=== PATIENT | male | born 1980 | race Caucasian/White ===

== ENCOUNTER 2016-09-28 20:40 | Emergency (ER) | payer OTHER ==
--- NOTE | 2016-09-28 22:03 | ED ORDER SUMMARY ---
..... Patient: RODY RENEE V OrderSheet [facility] VisitID: [id number] [address] [place] [address] 36y, M Registration Date/Time: 09/28/2016 ORDER SHEET Weight: 116.1 kg Allergies: No Known Drug Allergy GENERAL ORDERS: Shoulder 2V or more Left Urgent (21:06 09/28/2016 HBondina A.R.N.P.) (Ack 21:07 AMcQuoid ER Tech1) (21:20 MCabell) MEDICATION ORDERS: IV FLUIDS: ORDER SHEET NOTES: [Electronically signed by Jose Elias Swanson R.N. (22:10 09/28/2016)] [Electronically signed by Erica GoodenR.N.PJeronimo (13:31 09/29/2016)] [Electronically locked/signed by Jose Elias Swanson R.N. (22:10 09/28/2016)]
--- NOTE | 2016-09-28 22:03 | ED ORDER SUMMARY ---
..... Patient: RODY RENEE V OrderSheet [facility] VisitID: [id number] [address] [place] [address] 36y, M Registration Date/Time: 09/28/2016 ORDER SHEET Weight: 116.1 kg Allergies: No Known Drug Allergy GENERAL ORDERS: Shoulder 2V or more Left Urgent (21:06 09/28/2016 HBondina A.R.N.P.) (Ack 21:07 AMcQuoid ER Tech1) (21:20 MCabell) MEDICATION ORDERS: IV FLUIDS: ORDER SHEET NOTES: [Electronically signed by Jose Elias Swanson R.N. (22:10 09/28/2016)] [Electronically signed by Erica GoodenR.N.PJeronimo (13:31 09/29/2016)] [Electronically locked/signed by Jose Elias Swanson R.N. (22:10 09/28/2016)]
--- NOTE | 2016-09-28 22:03 | ED NURSING NOTES ---
Clinical Report - Nurses [facility] [address] [place] [address] 09/28/2016 20:44 [id number] TRI[facility] Triage time 20:48. Acuity: LEVEL 4. Chief Complaint: INJURY TO LEFT SHOULDER. --20:56 Jose Elias Swanson R.N. 20:48 09/28/16. BP: 111/61. HR: 83. RR: 18. O2 saturation: 100%. Temp: 98.1 F. Pain level now 12/02. --20:56 Jose Elias Swanson R.N. Weight: 116.1 kg. Height/Length: 76 inches. BMI: 31.2. --20:55 Jose Elias Swanson R.N. Medications PriLOSEC Oral. --20:54 Jose Elias Swanson R.N. Medication/allergy information source: the patient. --20:56 Jose Elias Swanson R.N. Allergies No Known Drug Allergy. --20:54 Jose Elias Swanson R.N. History Arrived by private vehicle. Historian: patient. Unaccompanied. Primary physician (Dr. Tyrel Almaguer [facility]). This occurred (1 week ago). Mechanism of injury: fell while walking and landed on a wood surface. ( Pt fell on a wooden deck about a week ago. Pt is having pain in the left shoulder. Limited rom due to pain. Pt is having some numbness and tingling in the 3rd and 4th finger.). He has had weakness and numbness. ( Pt has some weakness in the left hand when gripping.). PAST MEDICAL HX: Tetanus status: up-to-date. Immunizations: up-to-date. SOCIAL HX: Current every day heavy tobacco smoker (cigarette)- less than 1 pack per day. No alcohol use or drug use. --20:56 Jose Elias Swanson R.N. PROBLEMS: Knee Injury. Knee Joint Instability. Colon CA vrs Crohns. Headache. Paresthesia. Bronchitis. Myofascial Strain. Muscle Strain, Upper Extremity. Laceration. Hepatitis. Gastroesophageal Reflux. Tetanus Status. Atypical Chest Pain. Chest Pain of GI Origin. GI Disease. Immunizations. Hiatal Hernia. Gastroesophageal Reflux Disease. --20:55 Jose Elias Swanson R.N. Interventions ID band on patient. To waiting room. --20:56 Jose Elias Swanson R.N. PHYSICAL ASSESSMENT GENERAL / NEURO / PSYCH: Oriented X 4. Alert. Appears in no acute distress. EXTREMITIES: Limited ROM present in the left shoulder. Capillary refill is less than 2 seconds in the extremities. Extremity pulses are within normal limits. Neuro-vascular status intact to the extremity. Left shoulder: tenderness. Limited ROM due to pain and weakness (diminished abduction, adduction, flexion, extension and external and internal rotation). SKIN: Skin intact. Skin is warm and dry. --20:57 Jose Elias Swanson R.N. NURSING PROGRESS NOTES Reassurance given. Two patient identifiers checked. Call light placed in reach. Side rails up x 1. Bed placed in lowest position. Brakes of bed on. --20:57 Jose Elias Swanson R.N. DISPOSITION / DISCHARGE Departure time: 22:09. Condition at departure: unchanged. ( Pt is still having pain and limited rom in the left shoulder). No learning barriers present. Discharge instructions provided and reviewed with the patient. Reviewed medication(s) side effects, precautions, dosing and course information. Prescription(s) given to the patient. Activity restrictions (minimal use of injured extremity and rest) reviewed. Patient verbalized understanding. Written instructions provided in Slovenian. The patient was discharged by the nurse practitioner. He was discharged home and unaccompanied at time of discharge. He left the Emergency Department ambulatory and via private vehicle. Patient driving. --22:10 Jose Elias Swanson R.N. 22:08 09/28/16. BP: 118/55. HR: 75. RR: 16. O2 saturation: 100%. Pain level now 11/02. --22:10 Jose Elias Swanson R.N. Locked/Released at 09/28/2016 22:10 by Jose Elias Swanson R.N.
--- NOTE | 2016-09-28 22:03 | ED NURSING NOTES ---
Clinical Report - Nurses [facility] [address] [place] [address] 09/28/2016 20:44 [id number] TRI[facility] Triage time 20:48. Acuity: LEVEL 4. Chief Complaint: INJURY TO LEFT SHOULDER. --20:56 Jose Elias Swanson R.N. 20:48 09/28/16. BP: 111/61. HR: 83. RR: 18. O2 saturation: 100%. Temp: 98.1 F. Pain level now 12/02. --20:56 Jose Elias Swanson R.N. Weight: 116.1 kg. Height/Length: 76 inches. BMI: 31.2. --20:55 Jose Elias Swanson R.N. Medications PriLOSEC Oral. --20:54 Jose Elias Swanson R.N. Medication/allergy information source: the patient. --20:56 Jose Elias Swanson R.N. Allergies No Known Drug Allergy. --20:54 Jose Elias Swanson R.N. History Arrived by private vehicle. Historian: patient. Unaccompanied. Primary physician (Dr. Tyrel Almaguer [facility]). This occurred (1 week ago). Mechanism of injury: fell while walking and landed on a wood surface. ( Pt fell on a wooden deck about a week ago. Pt is having pain in the left shoulder. Limited rom due to pain. Pt is having some numbness and tingling in the 3rd and 4th finger.). He has had weakness and numbness. ( Pt has some weakness in the left hand when gripping.). PAST MEDICAL HX: Tetanus status: up-to-date. Immunizations: up-to-date. SOCIAL HX: Current every day heavy tobacco smoker (cigarette)- less than 1 pack per day. No alcohol use or drug use. --20:56 Jose Elias Swanson R.N. PROBLEMS: Knee Injury. Knee Joint Instability. Colon CA vrs Crohns. Headache. Paresthesia. Bronchitis. Myofascial Strain. Muscle Strain, Upper Extremity. Laceration. Hepatitis. Gastroesophageal Reflux. Tetanus Status. Atypical Chest Pain. Chest Pain of GI Origin. GI Disease. Immunizations. Hiatal Hernia. Gastroesophageal Reflux Disease. --20:55 Jose Elias Swanson R.N. Interventions ID band on patient. To waiting room. --20:56 Jose Elias Swanson R.N. PHYSICAL ASSESSMENT GENERAL / NEURO / PSYCH: Oriented X 4. Alert. Appears in no acute distress. EXTREMITIES: Limited ROM present in the left shoulder. Capillary refill is less than 2 seconds in the extremities. Extremity pulses are within normal limits. Neuro-vascular status intact to the extremity. Left shoulder: tenderness. Limited ROM due to pain and weakness (diminished abduction, adduction, flexion, extension and external and internal rotation). SKIN: Skin intact. Skin is warm and dry. --20:57 Jose Elias Swanson R.N. NURSING PROGRESS NOTES Reassurance given. Two patient identifiers checked. Call light placed in reach. Side rails up x 1. Bed placed in lowest position. Brakes of bed on. --20:57 Jose Elias Swanson R.N. DISPOSITION / DISCHARGE Departure time: 22:09. Condition at departure: unchanged. ( Pt is still having pain and limited rom in the left shoulder). No learning barriers present. Discharge instructions provided and reviewed with the patient. Reviewed medication(s) side effects, precautions, dosing and course information. Prescription(s) given to the patient. Activity restrictions (minimal use of injured extremity and rest) reviewed. Patient verbalized understanding. Written instructions provided in Scottish. The patient was discharged by the nurse practitioner. He was discharged home and unaccompanied at time of discharge. He left the Emergency Department ambulatory and via private vehicle. Patient driving. --22:10 Jose Elias Swanson R.N. 22:08 09/28/16. BP: 118/55. HR: 75. RR: 16. O2 saturation: 100%. Pain level now 11/02. --22:10 Jose Elias Swanson R.N. Locked/Released at 09/28/2016 22:10 by Jose Elias Swanson R.N.
--- NOTE | 2016-09-28 22:03 | ED CLINICAL REPORT ---
Clinical Report - Physicians/Mid Levels [facility] [address] [place] [address] 09/28/2016 20:44 Patient: RODY RENEE V Time Seen: 20:55; initial patient contact, initial documentation, patient care assumed. Arrived- By private vehicle. Historian- patient. HISTORY OF PRESENT ILLNESS Chief Complaint: Injury to left shoulder. The injury happened about weeks ago. Fell while walking and landed on a hard surface; slipped (on wet icy/snowy porch). Occurred at home. Patient is experiencing moderate pain. Patient denies injury to the head or neck. No other injury. REVIEW OF SYSTEMS No swelling, tingling, numbness, weakness or skin laceration. All systems otherwise negative, except as recorded above. PAST HISTORY See nurses notes. PROBLEMS: Knee Injury. Knee Joint Instability. Colon CA vrs Crohns. Headache. Paresthesia. Bronchitis. Myofascial Strain. Muscle Strain, Upper Extremity. Laceration. Hepatitis. Gastroesophageal Reflux. Tetanus Status. Atypical Chest Pain. Chest Pain of GI Origin. GI Disease. Immunizations. Hiatal Hernia. Gastroesophageal Reflux Disease. --20:55 Jose Elias Swanson R.N. The patient's dominant hand is the right. SOCIAL HISTORY Heavy tobacco smoker. No alcohol use or drug use. No recent travel. Is a local resident. FAMILY HISTORY No significant family medical history. ADDITIONAL NOTES The nursing notes have been reviewed with agreement regarding the chief complaint, HPI, ROS, PMH and patient medications and allergies. PHYSICAL EXAM Vital Signs: 09/28/2016 20:48 BP: 111/61. HR: 83. RR: 18. O2 saturation: 100%. Temp: 98.1 F. Appearance: Alert. Oriented X3. No acute distress. Head: Head atraumatic. Eyes: Pupils equal, round and reactive to light. Eyes normal inspection. Neck: Normal inspection. Neck supple. C-spine non-tender. Respiratory: No respiratory distress. Back: Normal inspection. No tenderness. ROM normal. Skin: Skin intact. Skin warm and dry. Normal skin color. Normal skin turgor. Extremities: Abnormal external inspection. Extremity tenderness. Left shoulder: mild tenderness located in the proximal humerus. Limited ROM due to pain (diminished abduction, adduction, flexion, extension and external and internal rotation). Neurovascular intact distally. No erythema, swelling, abrasion, ecchymosis or puncture wound. No foreign body or deformity. No joint effusion. Shoulder injury present. Shoulder otherwise negative. Extremities otherwise negative. Neuro, Vascular and Tendons: Sensation intact. Motor intact. Vascular status intact. Tendon function intact. Tendon visualized, uninjured. Neuro: Oriented X 3. No motor deficit. No sensory deficit. LABS, X-RAYS, AND EKG X-Rays: X-rays are normal and reveal no acute disease (reviewed by dr leahy). Left shoulder negative. The X-rays were independently viewed by me. PROGRESS AND PROCEDURES Patient counseled in person regarding the patient's stable condition, test results and diagnosis. 22:03. Differential Diagnosis: I considered fracture, stress fracture, sprain, hyperextension, dislocation, rotator cuff tear, acromioclavicular separation, soft tissue injury, soft tissue hematoma, tendonitis, myositis, fasciitis and bursitis as a possible cause of upper extremity pain in this patient. This is a partial list of diagnoses considered. Above considerations are based on history, physical exam and X-Ray data. Differential diagnosis was discussed with patient. Disposition: Discharged home in good and unchanged condition (22:03). Condition: good and stable. CLINICAL IMPRESSION Sprain of the left AC joint. Fall on same level by slipping. INSTRUCTIONS Warnings: GENERAL WARNINGS: Return or contact your physician immediately if your condition worsens or changes unexpectedly, if not improving as expected, or if other problems arise. Specifically return if problem worsens. Prescription Medications: Ultram 50 mg tablets: take 1-2 orally every 6 hours as needed for pain. Dispense twenty (20). No refills. Substitution is permissible. Follow-up: Follow up with your doctor in about one week as needed. Call for an appointment. Summary of care provided to patient. Understanding of the discharge instructions verbalized by patient. (Electronically signed by Erica Gooden A.R.N.P. 09/29/2016 13:31)
--- NOTE | 2016-09-28 23:02 | DIAGNOSTIC IMAGING REPORT ---
PROCEDURE: XR SHOULDER 2 OR MORE VW-LEFT INDICATION: TRAUMA/INJURY TECHNIQUE: Four views. COMPARISON: None. FINDINGS: Osseous structures and joint spaces are normal. IMPRESSION: 1. Normal left shoulder.
--- NOTE | 2016-09-29 13:31 | ED MED RECONCILIATION SUMMARY ---
Patient: RODY RENEE V Medication Reconciliation Report [facility] VisitID: [id number] [address] [place] [address] 36y, M Registration Date/Time: 09/28/2016 Weight: 116.1 kg Height/Length: 76 in. BMI: 31.2 ALLERGIES: No Known Drug Allergy The patient's Home Medications are listed below: THE FOLLOWING MEDICATIONS NEED TO BE RECONCILED: PriLOSEC Oral The source(s) of the original Home Medication information: patient The following Medications were given to the patient in the Emergency Department: None. The following Medications were prescribed to the patient: Ultram 50 mg tablets: take 1-2 orally every 6 hours as needed for pain. Dispense twenty (20). No refills. Substitution is permissible. -- Erica Gooden A.R.N.P.
--- NOTE | 2016-09-29 13:31 | ED MAR SUMMARY ---
..... Medication Administration Record [facility] [address] [place], [place] [id number] Patient: RODY RENEE V Visit ID: [id number] 36y, M Weight: 116.1 kg Height/Length: 76 in BMI: 31.2 ALLERGIES: No Known Drug Allergy
--- NOTE | 2016-09-29 13:31 | ED DISCHARGE INSTRUCTIONS ---
Patient: RODY RENEE V General Instructions [facility] VisitID: [id number] [place] [address] 36y, M Registration Date/Time: 09/28/2016 Sprain of the left AC joint. Fall on same level by slipping. INSTRUCTIONS Warnings: GENERAL WARNINGS: Return or contact your physician immediately if your condition worsens or changes unexpectedly, if not improving as expected, or if other problems arise. Specifically return if problem worsens. Prescription Medications: Ultram 50 mg tablets: take 1-2 orally every 6 hours as needed for pain. Dispense twenty (20). No refills. Substitution is permissible. Follow-up: Follow up with your doctor in about one week as needed. Call for an appointment. Summary of care provided to patient. Understanding of the discharge instructions verbalized by patient. ADDITIONAL INFORMATION Mechanical Fall You have had a fall today. It appears that the cause is mechanical. That means that you slipped, tripped or lost your balance. If your fall had been due to fainting or a seizure, further tests would be required. Home Care: Rest today and resume your normal activities when you are feeling back to normal. If you were injured during the fall, follow the advice from your doctor regarding care of your injury. You may use acetaminophen (Tylenol) or ibuprofen (Motrin, Advil) to control pain, unless another pain medicine was prescribed. [NOTE: If you have chronic liver or kidney disease or ever had a stomach ulcer or GI bleeding, talk with your doctor before using these medicines.] Fall Prevention: Was there anything that caused your fall that can be fixed, removed, or replaced? Make your home safe by keeping walkways clear of objects you may trip over. Use non-slip pads under rugs. Do not walk in poorly lit areas. Do not stand on chairs or wobbly ladders. Use caution when reaching overhead or looking upward. This position can cause a loss of balance. Be sure your shoes fit properly, have non-slip bottoms and are in good condition. Be cautious when going up and down curbs, and walking on uneven sidewalks. If your balance is poor, consider using a cane or walker. Stay as active as you can. Balance, flexibility, strength, and endurance all come from exercise. They all play a role in preventing falls. Follow Up with your doctor or as advised by our staff. Get Prompt Medical Attention if any of the following occur: Repeated mechanical falls, or unexplained falls Dizziness, fainting or seizure Severe headache Chest pain or shortness of breath Palpitations (very rapid or very slow or irregular heartbeat) Blood in vomit, stools (black or red color) Weakness of an arm or leg or one side of the face Difficulty with speech or vision Shoulder Sprain A sprain is a stretching or tearing of the ligaments that hold a joint together. A sprain may take up to six weeks to fully heal, depending on how severe it is. Moderate to severe shoulder sprains are treated with a sling or shoulder immobilizer. Minor sprains can be treated without any special support. Home care The following guidelines will help you care for your injury at home: If a sling was provided, leave it in place for the time advised by your doctor. If you are unsure how long to wear it, ask for advice. If the sling becomes loose, adjust it so that your forearm is level with the ground and the shoulder feels well supported. Apply an ice pack (ice cubes in a plastic bag, wrapped in a thin towel) over the injured area for 20 minutes every 12 hours the first day. Continue with ice packs 34 times a day for the next two days, then as needed for the relief of pain and swelling. You may use acetaminophen or ibuprofen to control pain, unless another pain medicine was prescribed.If you have chronic liver or kidney disease or ever had a stomach ulcer or GI bleeding, talk with your doctor before using these medicines. Shoulder joints become stiff if left in a sling for too long. Range of motion exercises should usually be started within the first ten days after injury. Consult your doctor on what type of exercises to do and how soon to start. Follow-up care Follow up with your doctor as directed. Any X-rays you had today dont show any broken bones, breaks, or fractures. Sometimes fractures dont show up on the first X-ray. Bruises and sprains can sometimes hurt as much as a fracture. These injuries can take time to heal completely. If your symptoms dont improve or they get worse, talk with your doctor. You may need a repeat X-ray. When to seek medical care Get prompt medical attention if any of the following occur: Increasing shoulder pain or arm swelling Fingers become cold, blue, numb, or tingly Large amount of bruising of the shoulder or upper arm Tramadol Hydrochloride Oral tablet What is this medicine? TRAMADOL (TRA ma dole) is a pain reliever. It is used to treat moderate to severe pain in adults. How should I use this medicine? Take this medicine by mouth with a full glass of water. Follow the directions on the prescription label. If the medicine upsets your stomach, take it with food or milk. Do not take more medicine than you are told to take. Talk to your photo lab manager regarding the use of this medicine in children. Special care may be needed. What side effects may I notice from receiving this medicine? Side effects that you should report to your doctor or health manager medicare marketing as soon as possible: allergic reactions like skin rash, itching or hives, swelling of the face, lips, or tongue breathing difficulties, wheezing confusion itching light headedness or fainting spells redness, blistering, peeling or loosening of the skin, including inside the mouth seizures Side effects that usually do not require medical attention (report to your doctor or health manager medicare marketing if they continue or are bothersome): constipation dizziness drowsiness headache nausea, vomiting What may interact with this medicine? Do not take this medicine with any of the following medications: MAOIs like Carbex, Eldepryl, Marplan, Nardil, and Parnate This medicine may also interact with the following medications: alcohol or medicines that contain alcohol antihistamines benzodiazepines bupropion carbamazepine or oxcarbazepine clozapine cyclobenzaprine digoxin furazolidone linezolid medicines for depression, anxiety, or psychotic disturbances medicines for migraine headache like almotriptan, eletriptan, frovatriptan, naratriptan, rizatriptan, sumatriptan, zolmitriptan medicines for pain like pentazocine, buprenorphine, butorphanol, meperidine, nalbuphine, and propoxyphene medicines for sleep muscle relaxants naltrexone phenobarbital phenothiazines like perphenazine, thioridazine, chlorpromazine, mesoridazine, fluphenazine, prochlorperazine, promazine, and trifluoperazine procarbazine warfarin What if I miss a dose? If you miss a dose, take it as soon as you can. If it is almost time for your next dose, take only that dose. Do not take double or extra doses. Where should I keep my medicine? Keep out of the reach of children. Store at room temperature between 15 and 30 degrees C (59 and 86 degrees F). Keep container tightly closed. Throw away any unused medicine after the expiration date. What should I tell my health care provider before I take this medicine? They need to know if you have any of these conditions: brain tumor depression drug abuse or addiction head injury if you frequently drink alcohol containing drinks kidney disease or trouble passing urine liver disease lung disease, asthma, or breathing problems seizures or epilepsy suicidal thoughts, plans, or attempt; a previous suicide attempt by you or a family member an unusual or allergic reaction to tramadol, codeine, other medicines, foods, dyes, or preservatives or trying to get breast-feeding What should I watch for while using this medicine? Tell your doctor or health manager medicare marketing if your pain does not go away, if it gets worse, or if you have new or a different type of pain. You may develop tolerance to the medicine. Tolerance means that you will need a higher dose of the medicine for pain relief. Tolerance is normal and is expected if you take this medicine for a long time. Do not suddenly stop taking your medicine because you may develop a severe reaction. Your body becomes used to the medicine. This does NOT mean you are addicted. Addiction is a behavior related to getting and using a drug for a non-medical reason. If you have pain, you have a medical reason to take pain medicine. Your doctor will tell you how much medicine to take. If your doctor wants you to stop the medicine, the dose will be slowly lowered over time to avoid any side effects. You may get drowsy or dizzy. Do not drive, use machinery, or do anything that needs mental alertness until you know how this medicine affects you. Do not stand or sit up quickly, especially if you are an older patient. This reduces the risk of dizzy or fainting spells. Alcohol can increase or decrease the effects of this medicine. Avoid alcoholic drinks. You may have constipation. Try to have a bowel movement at least every 2 to 3 days. If you do not have a bowel movement for 3 days, call your doctor or health manager medicare marketing. Your mouth may get dry. Chewing sugarless gum or sucking hard candy, and drinking plenty of water may help. Contact your doctor if the problem does not go away or is severe. You have been given the following additional information: Fall, Mechanical Shoulder Sprain Tramadol Hydrochloride Oral tablet (Electronically signed by Erica Gooden A.R.N.P. 09/29/2016 13:31)
--- NOTE | 2016-09-29 13:31 | ED MAR SUMMARY ---
..... Medication Administration Record [facility] [address] [place], [place] [id number] Patient: RODY RENEE V Visit ID: [id number] 36y, M Weight: 116.1 kg Height/Length: 76 in BMI: 31.2 ALLERGIES: No Known Drug Allergy
--- NOTE | 2016-09-29 13:31 | ED MED RECONCILIATION SUMMARY ---
Patient: RODY RENEE V Medication Reconciliation Report [facility] VisitID: [id number] [address] [place] [address] 36y, M Registration Date/Time: 09/28/2016 Weight: 116.1 kg Height/Length: 76 in. BMI: 31.2 ALLERGIES: No Known Drug Allergy The patient's Home Medications are listed below: THE FOLLOWING MEDICATIONS NEED TO BE RECONCILED: PriLOSEC Oral The source(s) of the original Home Medication information: patient The following Medications were given to the patient in the Emergency Department: None. The following Medications were prescribed to the patient: Ultram 50 mg tablets: take 1-2 orally every 6 hours as needed for pain. Dispense twenty (20). No refills. Substitution is permissible. -- Erica Gooden A.R.N.P.
== END 2016-09-28 22:05 | disposition home or self-care (01) ==
LOC: ED SRH 20:40
DX: S43.52XA Sprain of left acromioclavicular joint, initial encounter (principal); W00.0XXA Fall on same level due to ice and snow, initial encounter; Y93.9 Activity, unspecified; Y92.009 Unspecified place in unspecified non-institutional (private) residence as the place of occurrence of the external cause; Y99.9 Unspecified external cause status; F17.210 Nicotine dependence, cigarettes, uncomplicated; K21.9 Gastro-esophageal reflux disease without esophagitis